=== PATIENT | male | born 1985 | race Two or more races ===

== ENCOUNTER 2023-09-08 10:28 | Emergency (ER) | payer MEDICAID ==
[~2023-09-08] VITALS: Ht 165.1 cm; Wt 86.3 kg
[2023-09-08] MEDS ORDERED: LEVO500T91 PO (11:01)
[2023-09-08 11:17] LABS: COVID19 ANTIGEN SOFIA FIA NEGATIVE (NEGATIVE)
[2023-09-08 14:18] VITALS: BP 139/83; PULSE 80; RESP 12; TEMP 98.1; O2SAT 98
== END 2023-09-08 14:19 | disposition home or self-care (01) ==
LOC: ER 10:28
DX: J06.9 Acute upper respiratory infection, unspecified (principal); Z79.899 Other long term (current) drug therapy; Z20.822 Contact with and (suspected) exposure to COVID-19
CPT/HCPCS: 36415; 70450; 71045; 87426